=== PATIENT | male | born 1950 | race Caucasian/White ===

== ENCOUNTER 2021-06-15 11:48 | Outpatient (CLI) | payer MEDICARE, OTHER ==
[~2021-06-15] VITALS: Ht 177.8 cm; Wt 95.4 kg
[2021-06-15] MEDS ORDERED: CASIRIVIMAB/IMDEVIMAB 1,200 MG in NS (IVPB) 250 ML IV ONE (12:00)
[2021-06-15] MEDS ORDERED: EPINEPHrine INJECTION 1 MG/ML AMP IM PRN (12:00)
[2021-06-15] MEDS ORDERED: diphenhydrAMINE 50 MG/ML INJ (BENADRYL) IV PRN (12:00)
[2021-06-15 12:31] VITALS: BP 122/70
[2021-06-15 13:24] VITALS: BP 143/79
== END 2021-06-15 14:05 ==
LOC: INFUSION 11:48
PROVIDERS: ATTEND Student in an Organized Health Care Education/Training Program
DX: Z23 Encounter for immunization (principal); U07.1 COVID-19